=== PATIENT | female | born 1985 | race Hispanic/Latino ===

== ENCOUNTER → 2018-12-23 | Day surgery (SDC) | payer SELFPAY ==
[~2018-12-23] MED LIST: ACETAMINOPHEN 1000 MG/100 ML IV ONE; BACITRACIN 50,000 UNIT VIAL ONE; CEFAZOLIN SOD 1 GM/NS 50ML 50 ML IV ONE; DEXAMETHASONE SOD PHOS INJ 4 MG/ML VIAL ONE; EPINEPHRINE HCL 1:1000 1ML 1 MG/ML AMP ONE; FENTANYL CITRATE/PF 100MCG/2 ML INJ ONE; GLYCOPYRROLATE INJ 1MG/ 5 ML SYR ONE; HYDROCODONE/APAP 5MG-325MG TAB ONE; LIDOCAINE HCL 1% 30ML-PF VIAL ONE; LIDOCAINE HCL 1% LOCAL INJ 20 ML VIAL ONE; LIDOCAINE HCL 2% LOCAL INJ 5 ML SDV VIAL INJ ONE; MIDAZOLAM HCL 2 MG/2 ML VIAL ONE; MORPHINE SULFATE INJ 10 MG/ML ONE; NEOSTIGMINE 5 MG/5ML SYR ONE; ONDANSETRON HCL INJ 2MG/ML 2ML 2 MG/ML VIAL ONE; PROPOFOL IV EMULSION 10 MG/ML 20 ML VIAL ONE; ROCURONIUM BROMIDE 10 MG/ML 5ML VIAL ONE; SEVOFLURANE INHAL SOLN 250 ML PEN BTL ONE
[2018-12-23 14:15] VITALS: BP 125/82
--- NOTE | 2018-12-24 11:19 | Operative Report ---
DATE OF PROCEDURE: 12/23/2018 SURGEON: Dieter Meredith MD PREOPERATIVE DIAGNOSES: 1. involution of breasts. 2. Abdominal lipodystrophy. POSTOPERATIVE DIAGNOSES: 1. involution of breasts. 2. Abdominal lipodystrophy. PROCEDURES: 1. Bilateral augmentation mammoplasty. 2. Suction-assisted lipectomy of abdomen and flanks. ANESTHESIA: General. HISTORY: The patient is a 33-year-old female, who wishes to have correction of involution of breasts and abdominal lipodystrophy. The patient has signed the [employer] consent forms. Risks, benefits, and alternatives of treatment were discussed with the patient and she is prepared to undergo the procedure as outlined. PROCEDURE IN DETAIL: The patient was marked preoperatively in the holding area in the upright position. She was brought to the operating theater and after the induction of adequate general anesthesia, placement of a Yepez catheter and Venodyne compression boots. She was prepped and draped in a supine position and a time-out was performed. The inframammary incisions were marked out beneath both breasts. The incisions were made through the skin and subcutaneous tissues. Bleeding was controlled using the electrocautery. The incision was deepened through the subcutaneous and breast tissue until the pectoralis major muscle fascia was identified. Utilizing the dual plane technique, the lower hemisphere of each breasts then dissected off the prepectoral fascia using the electrocautery up to the level of the inferior margin of the areola. The wounds are inspected and hemostasis was made absolute using the electrocautery. At this point, the inferior border and medial border of the pectoralis major muscle were transected using the electrocautery, taking care to ensure that a cuff of tissue was left to support the inframammary fold. Once the pectoralis has been transected, it was elevated and the subpectoral space was developed using the electrocautery to the pocket limits marked on the external skin. At this point, the pockets were irrigated with saline and checked for hemostasis, which was made absolute using electrocautery. A 400 mL sizes were then placed in both subpectoral pockets and were inflated to 425 mL size and the pockets were inspected. There were several adjustments to the pockets that need to be made in order to allow the soft tissues to drape naturally over the sizers. These areas were marked out. The sizes were then removed and the areas were released in the subpectoral pocket once again. At this juncture, the sizes were placed and the sizers inflated to 425 mL volume and the patient was sat up. The soft tissue draping around the sizers noted to be satisfactory. The breasts were symmetric. The patient was made supine. The sizes were removed. Both pockets were irrigated first with normal saline and hemostasis was made absolute using the electrocautery. The pockets were then irrigated with Betadine solution. After this, they were irrigated with an antibiotic containing solution. Two 400 mL [place] implants were prepared per manufacturers specification. The lot number and serial number located within the patient's chart. Once the implants were prepared, they were inserted into the pockets and then the patient was sat up and assessed. There was noted to be good symmetry and good redraping of the tissues over each implant. The wounds were closed as follows. A 3-0 Monocryl was used in an interrupted fashion to approximate the deeper subcutaneous and breast tissue. A 4-0 Monocryl was used in an interrupted buried fashion to approximate the deep dermis and finally a 5-0 Monocryl was used in a running subcuticular fashion. Steri-Strips were applied and sterile dressings are applied. The central abdomen and the hips were marked out with the patient in the upright position. Using a standard [place] formula, 500 mL was used as tumescent for each side of the hip and 1000 mL was introduced into the central abdomen. The areas were tumesced through small stab wounds located to allow maximal cross-hatching of the areas of concern. Once the [place] formula and tumescent has been in place for approximately 15 to 20 minutes of maximum vasoconstrictive effect, the bilateral flanks and the central abdomen were tumesced using first 3 mm cannulas and then feathering with 2 mm cannulas. The total tumescent in was 2000 mL, 250 mL was removed from each flank and 500 mL was removed from the central abdomen. The patient tolerated the procedure well. The portals were closed with 5-0 chromic in an interrupted fashion. Dressings were placed over this chromic sutures. The patient was then placed in the postsurgical compressive garment and a postop compressive bra for breast augmentation. The estimated blood loss of the procedure was approximately 100 to 125 mL. The Yepez catheter was removed and she was returned to the recovery room in satisfactory condition and discharged with a postoperative instruction sheet as well as a followup appointment. MD ABDIFATAH Miner/EDWIN /[id number]
== END | disposition home or self-care (01) ==
LOC: OR 06:22
PROVIDERS: ATTEND Plastic Surgery
DX: N60.82 Other benign mammary dysplasias of left breast (principal); N60.81 Other benign mammary dysplasias of right breast; E65 Localized adiposity
CPT/HCPCS: 15877; 19325; 81025; C1789; J0131; J0171; J0690; J1100; J2001 ×3; J2250; J2270; J2405; J2704; J3010; J3490